=== PATIENT | female | born 1995 | race Caucasian/White ===

== ENCOUNTER 2018-11-09 17:26 | Emergency (ER) | payer OTHER ==
--- NOTE | 2018-11-09 17:45 | PDOC ---
Rapid Medical Evaluation Time Seen by Provider: 11/09/18 17:43 Medical Evaluation: 11/09/18 17:43 I have performed a brief in-person evaluation of this patient. The patient presents with a chief complaint of: THRASHER w/ dizziness x several weeks. Also reports CP today. H/o asthma, lupus (dx last year), sjogrens Pertinent physical exam findings:stable I have ordered the following:ekg/cxr/labs The patient will proceed to the ED for further evaluation. 11/09/18 17:45 Discharge Disposition - Diagnosis Headache Qualifiers: Headache type: unspecified Headache chronicity pattern: unspecified pattern Intractability: not intractable Qualified Code(s): R51 - Headache - Referrals - Patient Instructions - Post Discharge Activity
[2018-11-09 17:47] VITALS: TEMP 98; BMI 23.8
[2018-11-09 18:38] LABS: BASO % 0.7 % (0-2.0); EOS % 1.8 % (0-4.5); HEMATOCRIT 37.4 % (32.4-45.2); HEMOGLOBIN 13.3 GM/dL (10.7-15.3); LYMPH % 32.4 % (8-40); MCH 32.7 pg (25.7-33.7); MCHC 35.7 g/dl (32.0-36.0); MEAN CELL VOLUME 91.7 fl (80-96); MEAN PLT VOLUME 9.7 fl (7.5-11.1); MONO % 5.7 % (3.8-10.2); NEUT % 59.4 % (42.8-82.8); PLATELET COUNT 208 K/MM3 (134-434); RBC 4.08 M/mm3 (3.60-5.2); RDW 12.3 % (11.6-15.6); WHITE BLOOD COUNT 7.5 K/mm3 (4.0-10.0)
[2018-11-09 19:01] LABS: ALK PHOS 66 U/L (45-117); ANION GAP 6 MMOL/L (8-16); BILIRUBIN,TOTAL 0.2 mg/dL (0.2-1); BLOOD UREA NITROGEN 11 mg/dL (7-18); CALCIUM 8.9 mg/dL (8.5-10.1); CHLORIDE 107 mmol/L (98-107); CO2 25 mmol/L (21-32); CREATININE 0.6 mg/dL (0.55-1.3); GLUCOSE,RANDOM 101 mg/dL (74-106); POTASSIUM 3.7 mmol/L (3.5-5.1); SGOT/AST 8 U/L (15-37); SGPT/ALT 18 U/L (13-61); SODIUM 138 mmol/L (136-145); TOT PROT 7.1 g/dl (6.4-8.2)
--- NOTE | 2018-11-09 19:06 | PDOC ---
History of Present Illness - General Chief Complaint: Chest Pain Stated Complaint: CHEST PAIN Time Seen by Provider: 11/09/18 17:43 History Source: Patient Exam Limitations: No Limitations - History of Present Illness Initial Comments: 11/09/18 18:56 23 YOF with h/o SLE (dx one year ago), Sjogren syndrome, and asthma who p/w intermittent headache with lightheadedness for the past 2 week, and left upper chest pain onset this afternoon simultaneously with rapid palpitations and exacerbated lightheadedness. She recorded her HR to be up to 180 on her Apple Watch, and states this lasted about an hour (between 1:30-2:30p). The palpitations resolved but her left upper chest pain remains, at low level, sharp , radiating to both shoulders. She denies diaphoresis, change in her baseline SOB, change in her baseline abdominal discomfort, or other new symptoms. She takes no regular medications other than albuterol inhaler PRN. She took ibuprofen this morning because of her headache, but no other medications. Her mother states that she smoked hookah, but the patient notes that otherwise she does not use any tobacco, alcohol, or drugs. She has not followed up with a doctor for her SLE. Past History - Past Medical History Allergies/Adverse Reactions: Allergies Allergy/AdvReac Type Severity Reaction Status Date / Time No Known Allergies Allergy Verified 11/09/18 17:44 Asthma: Yes COPD: No Other medical history: LUPUS - Suicide/Smoking/Psychosocial Hx Smoking History: Never smoked Review of Systems - Review of Systems Able to Perform ROS?: Yes Comments:: GEN: no fever, chills, malaise, generalized weakness, or weight change HEENT: no ear pain, sore throat, vision change, or eye pain CV: chest pain, palpitations, lightheadedness, no syncope, or edema RESP: no cough, wheezing, or SOB GI: nausea, no new abdominal pain, new vomiting, diarrhea, constipation, or white/black/bloody stool : no dysuria, hematuria, incontinence, retention, bleeding, or discharge MSK: no neck/back pain, muscle weakness/pain, or joint swelling/pain NEURO: headache, no seizure, vertigo, numbness, tingling, or focal weakness PSYCH: no substance use, no behavior change SKIN: no jaundice, no rash ROS otherwise negative except as noted in HPI *Physical Exam - Vital Signs Last Vital Signs Temp Pulse Resp BP Pulse Ox 98 F 70 18 110/78 100 11/09/18 17:44 11/09/18 21:27 11/09/18 21:27 11/09/18 21:27 11/09/18 21:27 - Physical Exam Comments: 11/09/18 19:32 GENERAL: well-appearing, A/Ox4, no distress, answers questions appropriately HEENT: PERRLA, EOMI, moist mucous membranes NECK/BACK: no midline ttp, no spinal stepoff or deformity, no hematoma, full ROM , neck supple CARDIOVASCULAR: regular rate/rhythm with ectopy or PVCs, normal S1S2, no MGR, strong peripheral pulses, capillary refill <2 seconds, extremities wwp, no edema LUNGS/RESPIRATORY: no respiratory distress, CTAB GI/ABDOMEN: symmetric [id number], normoactive BS, soft, no ttp, no midline pulsatile masses : no CVA tenderness EXTREMITIES: no muscle atrophy, no acute deformity, no edema SKIN: warm and dry, no pallor, no jaundice, no rash, no bruising, no skin breakdown, no cuts, no lesions NEUROLOGICAL: GCS 15, CN II-XII grossly intact, 5/5 strength proximally and distally, no facial droop Heart Score/ECG Review - History History: Slightly suspicious - Electrocardiogram EKG: Normal - Age Age: </= 45 - Risk Factors Based on the list above the patient has:: No risk factors known - Troponin Troponin: </= normal limit - Score Heart Score - Total: 0 #1 11/09/18 18:17 Sinus bradycardia, sinus arrhythmia, rate 58, normal axis and intervals, no ST- T changes Moderate Sedation - Procedure Monitoring Vital Signs: Procedure Monitoring Vital Signs Temperature 98 F 11/09/18 17:44 Pulse Rate 70 11/09/18 21:27 Respiratory Rate 18 11/09/18 21:27 Blood Pressure 110/78 11/09/18 21:27 O2 Sat by Pulse Oximetry (%) 100 11/09/18 21:27 ED Treatment Course - LABORATORY CBC & Chemistry Diagram: 11/09/18 18:25 11/09/18 18:25 - ADDITIONAL ORDERS Additional order review: Laboratory Results 11/09/18 11/09/18 11/09/18 20:18 20:18 19:21 D-Dimer 242 Sodium Potassium Chloride Carbon Dioxide Anion Gap BUN Creatinine Creat Clearance w eGFR Random Glucose Calcium Total Bilirubin AST ALT Alkaline Phosphatase Total Protein Albumin TSH 2.48 Urine Color Ltyellow Urine Appearance Cloudy Urine pH 6.0 Ur Specific [place] 1.014 Urine Protein Negative Urine Glucose (UA) Negative Urine Ketones Negative Urine Blood 2+ H Urine Nitrite Negative Urine Bilirubin Negative Urine Urobilinogen Negative Ur Leukocyte Esterase Negative Urine WBC (Auto) 6 Urine RBC (Auto) 2 Ur Epithelial Cells Many Urine Bacteria Rare Urine HCG, Qual Negative 11/09/18 18:25 D-Dimer Sodium 138 Potassium 3.7 Chloride 107 Carbon Dioxide 25 Anion Gap 6 L BUN 11 Creatinine 0.6 Creat Clearance w eGFR > 60 Random Glucose 101 Calcium 8.9 Total Bilirubin 0.2 AST 8 L ALT 18 Alkaline Phosphatase 66 Total Protein 7.1 Albumin 4.0 TSH Urine Color Urine Appearance Urine pH Ur Specific [place] Urine Protein Urine Glucose (UA) Urine Ketones Urine Blood Urine Nitrite Urine Bilirubin Urine Urobilinogen Ur Leukocyte Esterase Urine WBC (Auto) Urine RBC (Auto) Ur Epithelial Cells Urine Bacteria Urine HCG, Qual 11/09/18 18:25 RBC 4.08 MCV 91.7 MCHC 35.7 RDW 12.3 MPV 9.7 Neutrophils % 59.4 Lymphocytes % 32.4 Monocytes % 5.7 Eosinophils % 1.8 Basophils % 0.7 - RADIOLOGY Radiology Studies Ordered: Category Date Time Status CXRPORT [CHEST X-RAY PORTABLE*] [RAD] Stat Radiology 11/09/18 19:06 Taken Medical Decision Making - Medical Decision Making Adult female Pt p/w tachycardia (resolved). Initial Vital Signs Temp Pulse Resp BP Pulse Ox 98 F 68 19 114/69 100 11/09/18 17:44 11/09/18 17:44 11/09/18 17:44 11/09/18 17:44 11/09/18 17:44 Exam: As noted in Physical Exam section. DDX IBNLT: sepsis/shock (e.g. PNA, UTI, cellulitis, etc), tachyarrhythmia (e.g. VT, pSVT, re-entrant tachycardia, AF w/ RVR, AFL, MAT, VF), PE, ischemia (ACS), anxiety/panic, hypoxia, hemorrhage/anemia (e.g. ectopic, heavy menstruation, GIB , hematuria), tamponade, etc. W/U ordered: EKG, CBCD CMP Mg Phos Trop CK CKMB BNP UA UCx hCG CXR TX ordered: IV, O2, Monitor EKG: Reviewed; results as noted in ECG Review section. Laboratory Tests 11/09/18 11/09/18 11/09/18 18:25 18:25 19:21 WBC 7.5 RBC 4.08 Hgb 13.3 Hct 37.4 MCV 91.7 MCH 32.7 MCHC 35.7 RDW 12.3 Plt Count 208 MPV 9.7 Absolute Neuts (auto) 4.5 Neutrophils % 59.4 Lymphocytes % 32.4 Monocytes % 5.7 Eosinophils % 1.8 Basophils % 0.7 Nucleated RBC % 0 D-Dimer Sodium 138 Potassium 3.7 Chloride 107 Carbon Dioxide 25 Anion Gap 6 L BUN 11 Creatinine 0.6 Creat Clearance w eGFR > 60 Random Glucose 101 Calcium 8.9 Total Bilirubin 0.2 AST 8 L ALT 18 Alkaline Phosphatase 66 Total Protein 7.1 Albumin 4.0 TSH Urine Color Ltyellow Urine Appearance Cloudy Urine pH 6.0 Ur Specific [place] 1.014 Urine Protein Negative Urine Glucose (UA) Negative Urine Ketones Negative Urine Blood 2+ H Urine Nitrite Negative Urine Bilirubin Negative Urine Urobilinogen Negative Ur Leukocyte Esterase Negative Urine WBC (Auto) 6 Urine RBC (Auto) 2 Ur Epithelial Cells Many Urine Bacteria Rare Urine HCG, Qual Negative 11/09/18 11/09/18 20:18 20:18 WBC RBC Hgb Hct MCV MCH MCHC RDW Plt Count MPV Absolute Neuts (auto) Neutrophils % Lymphocytes % Monocytes % Eosinophils % Basophils % Nucleated RBC % D-Dimer 242 Sodium Potassium Chloride Carbon Dioxide Anion Gap BUN Creatinine Creat Clearance w eGFR Random Glucose Calcium Total Bilirubin AST ALT Alkaline Phosphatase Total Protein Albumin TSH 2.48 Urine Color Urine Appearance Urine pH Ur Specific [place] Urine Protein Urine Glucose (UA) Urine Ketones Urine Blood Urine Nitrite Urine Bilirubin Urine Urobilinogen Ur Leukocyte Esterase Urine WBC (Auto) Urine RBC (Auto) Ur Epithelial Cells Urine Bacteria Urine HCG, Qual CXR: Nothing acute Vital Signs Temperature 98 F 11/09/18 17:44 Pulse Rate 70 11/09/18 21:27 Respiratory Rate 18 11/09/18 21:27 Blood Pressure 110/78 11/09/18 21:27 O2 Sat by Pulse Oximetry (%) 100 11/09/18 21:27 11/09/18 22:19 The Pt has no remaining chest pain. She does not have workup findings concerning for life-threatening arrhythmia or other dangerous cause. She is appropriate for discharge with close outpatient follow up. She is comfortable with this plan and will follow up with her primary care provider in 1-3 days. I have given referral information for Sec Reporting Consultant and Battery Parts Assembler. Specific return precautions are discussed and she will come back to the ER if necessary. *DC/Admit/Observation/Transfer Diagnosis at time of Disposition: Palpitations Headache Qualifiers: Headache type: unspecified Headache chronicity pattern: unspecified pattern Intractability: not intractable Qualified Code(s): R51 - Headache Chest pain Qualifiers: Chest pain type: unspecified Qualified Code(s): R07.9 - Chest pain, unspecified - Discharge Dispostion Disposition: HOME Condition at time of disposition: Stable Decision to Admit order: No - Referrals Referrals: Rory Allison MD [Staff Physician] - Vin Abreu MD [Staff Physician] - - Patient Instructions Printed Discharge Instructions: DI for Chest Pain Additional Instructions: You were seen in the ER for chest pain and rapid heart rate earlier today. We did lab work on your blood and urine, an electrocardiogram, and a chest x-ray, and we did not find any concerning abnormalities. After our assessment, we do not believe you are having a medical emergency at this time, and we believe you are safe to go home. Please follow up with your primary care provider, and also a planetarium technician. We are giving you referral information for our planetarium technician regional rehabilitation director, and you should speak with them about your rapid heart rate and palpitations. Even more importantly, you need to follow up with a team psychologist to talk about your lupus and any medications that you need to start taking regularly. Call their clinic as soon as possible, tell them you were seen in the ER, and tell them you need an appointment. If you have any new or worsening symptoms, especially worsening slow or fast palpitations, chest discomfort, shortness of breath, sweats, nausea, loss of consciousness, dizziness, or other symptoms, please come back to the ER at any time (24 hours a day). If you are having severe or life threatening symptoms, or symptoms that make it unsafe to drive or have someone drive you, please call 911. - Post Discharge Activity
--- NOTE | 2018-11-09 19:59 | PDOC ---
Attending Attestation - HPI HPI: 11/09/18 20:03 The patient is a 23 year old female with a significant past medical history of SLE (dx one year ago, not treated), Sjogren syndrome, and asthma (albuterol prn) , who presents to the emergency department with 2 week complaint of intermittent headache with associated lightheadedness, as well as, sudden onset of left chest pain this afternoon associated with rapid palpitations today. She denies any symptoms now. Allergies: NKDA Past surgical history: none reported Social history: occasional hookah smoking Documentation prepared by Shanice Almazan, acting as medical driver for Ko Ramesh MD <Shanice Almazan - Last Filed: 11/09/18 20:03> - Resident Resident Name: Anna Parrish - ED Attending Attestation I have performed the following: I have examined & evaluated the patient, The case was reviewed & discussed with the resident, I agree w/resident's findings & plan, Exceptions are as noted - Physicial Exam PE: 11/09/18 20:20 Patient is awake and alert, well-nourished, well-appearing, in no distress Normocephalic and atraumatic PERRLA, EOMI CTA No reproducible chest wall tenderness RRR No CVA tenderness bilaterally - Medical Decision Making 11/09/18 20:20 23-year-old female with history of SLE, Sjogren's who presents with atraumatic left-sided chest discomfort and periods of tachycardia noted on her apple watch. In the ER, patient is awake and alert, afebrile, with normal oxygen saturation, no evidence of tachycardia or acute ischemia on the EKG. No evidence of right sided heart strain noted either. Differential diagnoses includes PE versus pleurisy versus MS pain. Patient is low probability for PE by Wells score. Will obtain a d-dimer and if positive will obtain CTA. We'll obtain CBC/CMP/urine preg. We'll obtain chest x-ray. Will reassess. 11/09/18 22:10 D-dimer is negative. Patient asymptomatic. PE or ACS highly unlikely at this time. Will discharge with rheumatology follow-up. <Ko Ramesh - Last Filed: 11/09/18 22:11>
[2018-11-09 20:43] LABS: URINE APPEARANCE CLOUDY; URINE BILIRUBIN NEGATIVE (<2.0 mg/dL); URINE COLOR LTYELLOW; URINE GLUCOSE (UA) NEGATIVE (NEGATIVE); URINE KETONE NEGATIVE (NEGATIVE); URINE LEUK ESTERASE NEGATIVE (NEGATIVE); URINE NITRITE NEGATIVE (NEGATIVE); URINE PROTEIN NEGATIVE (NEGATIVE); URINE UROBILINOGEN NEGATIVE mg/dL (0.2-1.0)
[2018-11-09 20:49] LABS: HCG,QUALITATIVE URINE Negative
[2018-11-09 20:59] LABS: EPI CELLS MANY /HPF (FEW); URINE BACTERIA RARE /hpf (NONE SEEN)
[2018-11-09 21:28] VITALS: BP 110/78; PULSE 70
--- NOTE | 2018-11-10 12:50 | EKG ---
Test Reason : Blood Pressure : / mmHG Vent. Rate : 058 BPM Atrial Rate : 058 BPM P-R Int : 162 ms QRS Dur : 084 ms QT Int : 404 ms P-R-T Axes : 068 054 042 degrees QTc Int : 396 ms SINUS BRADYCARDIA WITH SINUS ARRHYTHMIA OTHERWISE NORMAL ECG NO PREVIOUS ECGS AVAILABLE Confirmed by MD JESSICA, BO ([id number]) on 11/10/2018 12:49:29 PM Referred By: Confirmed By:BO LOPEZ MD
== END 2018-11-09 22:43 | disposition home or self-care (01) ==
LOC: JER 17:26
DX: R07.9 Chest pain, unspecified (principal); R00.2 Palpitations; R51 Headache; M32.9 Systemic lupus erythematosus, unspecified; M35.00 Sjogren syndrome, unspecified; J45.909 Unspecified asthma, uncomplicated
CPT/HCPCS: 36415; 71045-TC-FY; 80053; 81003; 81015; 84443; 84703; 85025; 85379; 93005; 93010; 99281-25